=== PATIENT | male | born 1940 | race Two or more races ===

== ENCOUNTER 2023-07-07 02:01 | Inpatient (IN) | payer MEDICARE, OTHER ==
[~2023-07-07] VITALS: Ht 182.9 cm; Wt 89.8 kg
[2023-07-07 03:29] LABS: BASOPHILS % (AUTO) 0.6 % (0.0-2.0); EOSINOPHILS # (AUTO) 0.1 K/uL (0.0-0.7); EOSINOPHILS % (AUTO) 1.5 % (0.0-6.0); HEMATOCRIT 42 % (39-51); LYMPHOCYTES # (AUTO) 0.3 K/uL (0.8-4.8); LYMPHOCYTES % (AUTO) 8.3 % (20.0-44.0); MEAN CORPUSCULAR HEMOGLOBIN 34 PG (26.0-33.0); MEAN CORPUSCULAR HGB CONC 34 g/dl (31.0-36.0); MEAN CORPUSCULAR VOLUME 102 fL (80-96); MONOCYTES # (AUTO) 0.5 K/uL (0.1-1.30); MONOCYTES % (AUTO) 13.4 % (2.0-12.0); NEUTROPHILS # (AUTO) 2.9 K/uL (1.8-8.9); NEUTROPHILS % (AUTO) 76.2 % (43.0-81.0); PLATELET COUNT (AUTO) 82 K/uL (150-450); RED BLOOD CELL COUNT(AUTO) 4.09 MIL/uL (4.5-6.0); RED CELL DISTRIBUTION WIDTH 13.7 % (11.5-15.0); WHITE BLOOD COUNT (AUTO) 3.8 K/uL (4.3-11.0)
[2023-07-07 04:06] LABS: CALCIUM, SERUM 8.9 mg/dL (8.5-10.1); CARBON DIOXIDE 24 mmol/L (21-32); CHLORIDE 103 mmol/L (98-107); CREATININE 1.1 mg/dL (0.6-1.3); GLUCOSE 180 mg/dL (74-106); POTASSIUM 4.2 mmol/L (3.5-5.1); SODIUM SERUM 136 mmol/L (136-145); UREA NITROGEN, BLOOD 6 mg/dL (7-18)
[2023-07-07 04:18] LABS: ALANINE AMINOTRANSFERASE 14 U/L (12-78); ALBUMIN 3.4 g/dL (3.4-5.0); ALKALINE PHOSPHATASE 96 U/L (46-116); ASPARTATE AMINOTRANSFERASE 19 U/L (15-37); BILIRUBIN,DIRECT 0.3 mg/dL (0.0-0.2); BILIRUBIN,TOTAL 0.8 mg/dL (0.2-1.0); NT-PRO BNP 414 pg/mL (0-125); TOTAL PROTEIN, SERUM 6.4 g/dL (6.4-8.2)
[2023-07-07 04:36] LABS: BASOPHILS % (MANUAL) 0 % (0.0-2.0); EOSINOPHILS % (MANUAL) 2 % (0-4); LYMPHOCYTES % (MANUAL) 5 % (16-48); MONOCYTES % (MANUAL) 9 % (0-11.0); NEUTROPHILS % (MANUAL) 84 (42-76); PLATELET ESTIMATE DECREASED
[2023-07-07] MEDS ORDERED: oxyCODONE/APAP (5/325 MG) 1 UDTAB TABLET ONE (04:52)
[2023-07-07] MEDS ORDERED: oxyCODONE/APAP (5/325 MG) 1 UDTAB TABLET PO ONE (05:00)
[2023-07-07] MEDS ORDERED: MAG HYDROX/AL HYDROX/SIMETH 30 ML UDC PO PRN (05:30)
[2023-07-07] MEDS ORDERED: MORPHINE SULFATE INJ 2 MG/ML DISP.SYRIN IV PRN (05:30)
[2023-07-07] MEDS ORDERED: MAGNESIUM HYDROXIDE 30 ML UDC PO PRN (05:30)
[2023-07-07] MEDS ORDERED: ONDANSETRON HCL/PF 4 MG/2 ML VIAL IVP PRN (05:30)
[2023-07-07] MEDS ORDERED: ACETAMINOPHEN 325 MG TABLET PO PRN (05:30)
[2023-07-07] MEDS ORDERED: Z GUARD REMEDY 4 OZ OINT TP PRN (05:30)
[2023-07-07] MEDS ORDERED: CEFTRIAXONE 1GM BAG (ER ONLY) 1 GM/50 ML PIGGYBACK IV ONE (06:00)
[2023-07-07] MEDS ORDERED: CEFTRIAXONE 1GM BAG (ER ONLY) 50 ML IV ONE (06:07)
[2023-07-07] MEDS: PANTOPRAZOLE 40 MG TABLET.DR PO SCH (07:30)
[2023-07-07] MEDS ORDERED: ATOR10TA PO (10:35)
[2023-07-07] MEDS ORDERED: METF-440 PO (10:35)
[2023-07-07] MEDS: HYDROCODONE/APAP 5/325MG TABLET PO PRN ×3 (10:39→18:51)
[2023-07-07] MEDS ORDERED: OMEP20CA15 PO (12:21)
[2023-07-07] MEDS ORDERED: DAPA10TA PO (12:21)
[2023-07-07 13:27] LABS: THYROID STIMULATING HORMONE 2.201 uIU/mL (0.358-3.74)
[2023-07-07] MEDS ORDERED: DEXTROSE 50%-WATER 50 ML DISP.SYRIN IV PRN (14:30)
[2023-07-07 17:15] LABS: FREE PSA 1.21 ng/mL (0.00-45); PROSTATE SPECIFIC ANTIGEN SCR 5.68 ng/mL (0.00-4.00)
[2023-07-07] MEDS: METFORMIN 500 MG TABLET PO SCH (18:03)
[2023-07-07] MEDS: BLOOD SUGAR DIAGNOSTIC 1 EACH STRIP IN SCH ×2 (18:03→23:02)
[2023-07-07 19:12] LABS: RHEUMATOID FACTOR SCREEN NEGATIVE (NEGATIVE)
[2023-07-07 20:00] VITALS: BP 154/74; TEMP 98.2; O2SAT 98
[2023-07-07] MEDS: TEMAZEPAM 15 MG CAPSULE PO PRN (22:36)
[2023-07-07] MEDS: INSULIN REGULAR, HUMAN 100 UNIT/ML 3 ML VIAL SQ PRN (23:01)
[2023-07-08 04:00] VITALS: BP 127/62; TEMP 97.6; O2SAT 98
[2023-07-08] MEDS: CEFTRIAXONE 1 G in IV D5W 50 ML IV SCH ×2 (06:37→06:42)
[2023-07-08 07:07] LABS: FOLIC ACID 15.5 ng/mL (>3.0)
[2023-07-08] MEDS ORDERED: OMEPRAZOLE 20 MG CAPSULE.DR PO SCH (07:30)
[2023-07-08] MEDS: PANTOPRAZOLE 40 MG TABLET.DR PO SCH (07:30)
[2023-07-08] MEDS: BLOOD SUGAR DIAGNOSTIC 1 EACH STRIP IN SCH ×4 (08:00→21:13)
[2023-07-08 08:07] LABS: IMMUNOGLOBULIN A, SERUM 91 mg/dL (61-437); IMMUNOGLOBULIN G, SERUM 785 mg/dL (603-1613)
[2023-07-08] MEDS: METFORMIN 500 MG TABLET PO SCH ×2 (08:11→17:24)
[2023-07-08] MEDS: ATORVASTATIN 10 MG TABLET PO SCH (08:11)
[2023-07-08 08:20] LABS: BASOPHILS % (AUTO) 0.7 % (0.0-2.0); EOSINOPHILS % (AUTO) 0.4 % (0.0-6.0); HEMATOCRIT 41 % (39-51); HEMOGLOBIN 13.6 g/dL (13.5-17.5); LYMPHOCYTES # (AUTO) 0.4 K/uL (0.8-4.8); LYMPHOCYTES % (AUTO) 19.3 % (20.0-44.0); MEAN CORPUSCULAR HEMOGLOBIN 34 PG (26.0-33.0); MEAN CORPUSCULAR HGB CONC 33 g/dl (31.0-36.0); MEAN CORPUSCULAR VOLUME 101 fL (80-96); MONOCYTES # (AUTO) 0.3 K/uL (0.1-1.30); NEUTROPHILS # (AUTO) 1.5 K/uL (1.8-8.9); NEUTROPHILS % (AUTO) 66.6 % (43.0-81.0); PLATELET COUNT (AUTO) 70 K/uL (150-450); RED BLOOD CELL COUNT(AUTO) 4.01 MIL/uL (4.5-6.0); RED CELL DISTRIBUTION WIDTH 13.6 % (11.5-15.0); WHITE BLOOD COUNT (AUTO) 2.2 K/uL (4.3-11.0)
[2023-07-08 08:32] LABS: CALCIUM, SERUM 8.5 mg/dL (8.5-10.1); CREATININE 0.8 mg/dL (0.6-1.3); MAGNESIUM 2.2 mg/dL (1.8-2.4); PHOSPHORUS 3.6 mg/dL (2.5-4.9); POTASSIUM 4.1 mmol/L (3.5-5.1)
[2023-07-08 09:07] LABS: *ANA ANTI-CENTROMERE B AB <0.2 AI (0.0-0.9); *ANA ANTI-DNA(DS) AB, QN <1 IU/mL (0-9); *ANA ANTI-JO-1 <0.2 AI (0.0-0.9); *ANA ANTICHROMATIN ANTIBODY <0.2 AI (0.0-0.9); *ANA RNP ANTIBODIES <0.2 AI (0.0-0.9); *ANA SJOGREN'S ANTI-SS-A 0.2 AI (0.0-0.9); *ANA SJOGREN'S ANTI-SS-B <0.2 AI (0.0-0.9); *ANAANTI-SCLERODERMA-70 AB 1.8 AI (0.0-0.9); *ANASMITH AB <0.2 AI (0.0-0.9)
[2023-07-08 10:07] LABS: *SPE A/G RATIO 1.2 (0.7-1.7); *SPE ALBUMIN 2.9 g/dL (2.9-4.4); *SPE ALPHA-1-GLOBULIN 0.3 g/dL (0.0-0.4); *SPE ALPHA-2-GLOBULIN 0.7 g/dL (0.4-1.0); *SPE BETA GLOBULIN 0.8 g/dL (0.7-1.3); *SPE GLOBULIN, TOTAL 2.5 g/dL (2.2-3.9); *SPE M-SPIKE Not Observed g/dL (Not Observed); *SPE PROTEIN TOTAL 5.4 g/dL (6.0-8.5); *SPEGAMMA GLOBULIN 0.8 g/dL (0.4-1.8)
[2023-07-08 10:19] LABS: ANISOCYTOSIS 1+; BASOPHILS % (MANUAL) 0 % (0.0-2.0); EOSINOPHILS % (MANUAL) 0 % (0-4); LYMPHOCYTES % (MANUAL) 15 % (16-48); MONOCYTES % (MANUAL) 14 % (0-11.0); NEUTROPHILS % (MANUAL) 71 (42-76); PLATELET ESTIMATE DECREASED
[2023-07-08] MEDS: HYDROCODONE/APAP 5/325MG TABLET PO PRN (10:58)
[2023-07-08 12:00] VITALS: BP 111/61; TEMP 97.8; O2SAT 95
[2023-07-08 12:07] LABS: HEPATITIS B SURFACE AB Non Reactive (.)
[2023-07-08] MEDS: FERROUS SULFATE (325 MG) 325 MG/TAB TABLET PO SCH (15:18)
[2023-07-08 16:57] LABS: APPEARANCE,URINE CLEAR (CLEAR); BILIRUBIN,URINE NEGATIVE (NEGATIVE); BLOOD, URINE NEGATIVE Ery/uL (NEGATIVE); COLOR,URINE YELLOW (YELLOW); KETONES,URINE 2+ mg/dL (NEGATIVE); LEUKOCYTE ESTERASE ,URINE NEGATIVE (NEGATIVE); NITRITE, URINE NEGATIVE (NEGATIVE); PROTEIN,URINE NEGATIVE (NEGATIVE); UGLUCOSE 3+ mg/dL (NEGATIVE); UROBILINOGEN,URINE 0.2 EU/dL (0.2)
[2023-07-08 17:26] LABS: ADD URINE CULTURE YES; BACTERIA,URINE 2+ /HPF (None Seen); RBC,URINE NONE SEEN /HPF (0-2); SQUAMOUS EPITHELIAL CELL,UR 0-2 /HPF (None Seen); WBC,URINE NONE SEEN /HPF (0-3)
[2023-07-08] MEDS: INSULIN REGULAR, HUMAN 100 UNIT/ML 3 ML VIAL SQ PRN ×2 (17:31→21:14)
[2023-07-08 20:00] VITALS: BP 123/64; TEMP 98.8; O2SAT 99
[2023-07-09 04:00] VITALS: BP 123/64; TEMP 98.8; O2SAT 99
[2023-07-09] MEDS: CEFTRIAXONE 1 G in IV D5W 50 ML IV SCH (06:25)
[2023-07-09 07:02] LABS: BASOPHILS % (AUTO) 0.6 % (0.0-2.0); EOSINOPHILS % (AUTO) 0.7 % (0.0-6.0); HEMATOCRIT 41 % (39-51); HEMOGLOBIN 14.1 g/dL (13.5-17.5); LYMPHOCYTES # (AUTO) 0.8 K/uL (0.8-4.8); LYMPHOCYTES % (AUTO) 35.5 % (20.0-44.0); MEAN CORPUSCULAR HEMOGLOBIN 35 PG (26.0-33.0); MEAN CORPUSCULAR HGB CONC 35 g/dl (31.0-36.0); MEAN CORPUSCULAR VOLUME 100 fL (80-96); MONOCYTES # (AUTO) 0.3 K/uL (0.1-1.30); MONOCYTES % (AUTO) 13.8 % (2.0-12.0); NEUTROPHILS # (AUTO) 1.2 K/uL (1.8-8.9); NEUTROPHILS % (AUTO) 49.4 % (43.0-81.0); PLATELET COUNT (AUTO) 66 K/uL (150-450); RED BLOOD CELL COUNT(AUTO) 4.09 MIL/uL (4.5-6.0); RED CELL DISTRIBUTION WIDTH 13.5 % (11.5-15.0); WHITE BLOOD COUNT (AUTO) 2.3 K/uL (4.3-11.0)
[2023-07-09 07:19] LABS: CALCIUM, SERUM 8.4 mg/dL (8.5-10.1); CREATININE 0.7 mg/dL (0.6-1.3); POTASSIUM 4.1 mmol/L (3.5-5.1)
[2023-07-09] MEDS: PANTOPRAZOLE 40 MG TABLET.DR PO SCH ×2 (07:30→12:43)
[2023-07-09 08:23] LABS: BAND % (MANUAL) 1 % (0.0-5.0); EOSINOPHILS % (MANUAL) 1 % (0-4); LYMPHOCYTES % (MANUAL) 34 % (16-48); MONOCYTES % (MANUAL) 10 % (0-11.0); NEUTROPHILS % (MANUAL) 54 (42-76)
[2023-07-09 08:24] LABS: ANISOCYTOSIS 1+; PLATELET ESTIMATE DECREASED
[2023-07-09] MEDS: LIDOCAINE 5% (PATCH) 1 EA PATCH TP SCH ×2 (08:30→12:44)
[2023-07-09] MEDS: ATORVASTATIN 10 MG TABLET PO SCH ×2 (09:00→12:46)
[2023-07-09] MEDS: METFORMIN 500 MG TABLET PO SCH ×3 (09:00→18:01)
[2023-07-09] MEDS: FERROUS SULFATE (325 MG) 325 MG/TAB TABLET PO SCH ×2 (09:00→12:45)
[2023-07-09] MEDS ORDERED: IV NS 0.9% 250 ML IV ONE (09:23)
[2023-07-09] MEDS ORDERED: IOHEXOL-300 100 ML VIAL IV ONE (09:23)
[2023-07-09] MEDS: BLOOD SUGAR DIAGNOSTIC 1 EACH STRIP IN SCH ×4 (10:32→22:00)
[2023-07-09 12:00] VITALS: BP 130/66; TEMP 98.7; O2SAT 96
[2023-07-09] MEDS: HYDROCODONE/APAP 5/325MG TABLET PO PRN ×2 (12:38→18:14)
[2023-07-09] MEDS ORDERED: GADOTERATE MEGLUMINE 10 MMOL/20 ML VIAL IV ONE (13:16)
[2023-07-09] MEDS ORDERED: TRAMADOL HCL 50 MG TABLET PO PRN (16:00)
[2023-07-09] MEDS: POLYETHYLENE GLYCOL 3350 17 GM POWD.PACK PO SCH (16:16)
[2023-07-09 20:00] VITALS: BP 114/61; TEMP 98.6; O2SAT 95
[2023-07-09 20:43] LABS: FREE PSA 0.59 ng/mL (0.00-45); PROSTATE SPECIFIC ANTIGEN SCR 3.45 ng/mL (0.00-4.00)
[2023-07-09] MEDS: TEMAZEPAM 15 MG CAPSULE PO PRN (21:06)
[2023-07-09] MEDS: ASPIRIN 81 MG TAB.CHEW PO SCH (21:06)
[2023-07-09] MEDS: INSULIN REGULAR, HUMAN 100 UNIT/ML 3 ML VIAL SQ PRN (22:01)
[2023-07-10 04:00] VITALS: BP 118/60; TEMP 98.7; O2SAT 96
[2023-07-10] MEDS: CEFTRIAXONE 1 G in IV D5W 50 ML IV SCH (05:36)
[2023-07-10] MEDS: BLOOD SUGAR DIAGNOSTIC 1 EACH STRIP IN SCH ×2 (07:30→12:13)
[2023-07-10] MEDS: PANTOPRAZOLE 40 MG TABLET.DR PO SCH (07:59)
[2023-07-10] MEDS: ASPIRIN 81 MG TAB.CHEW PO SCH (08:19)
[2023-07-10] MEDS: FERROUS SULFATE (325 MG) 325 MG/TAB TABLET PO SCH (08:19)
[2023-07-10] MEDS: METFORMIN 500 MG TABLET PO SCH (08:19)
[2023-07-10] MEDS: LIDOCAINE 5% (PATCH) 1 EA PATCH TP SCH (08:19)
[2023-07-10] MEDS: POLYETHYLENE GLYCOL 3350 17 GM POWD.PACK PO SCH (08:19)
[2023-07-10] MEDS: ATORVASTATIN 10 MG TABLET PO SCH (08:19)
[2023-07-10] MEDS: HYDROCODONE/APAP 5/325MG TABLET PO PRN (08:20)
[2023-07-10 09:07] LABS: IMMUNOGLOBULIN M, SERUM 66 mg/dL (15-143)
[2023-07-10] MEDS ORDERED: AZIT250T13 PO (10:30)
[2023-07-10] MEDS ORDERED: AMOX-430 PO (10:30)
[2023-07-10] MEDS ORDERED: LIDO30AD10 TP (10:30)
[2023-07-10] MEDS ORDERED: ASPI-1169 PO (10:30)
[2023-07-10 11:21] LABS: BASOPHILS % (AUTO) 0.7 % (0.0-2.0); EOSINOPHILS % (AUTO) 1.7 % (0.0-6.0); HEMATOCRIT 41 % (39-51); HEMOGLOBIN 14.1 g/dL (13.5-17.5); LYMPHOCYTES # (AUTO) 0.6 K/uL (0.8-4.8); LYMPHOCYTES % (AUTO) 27.6 % (20.0-44.0); MEAN CORPUSCULAR HEMOGLOBIN 35 PG (26.0-33.0); MEAN CORPUSCULAR HGB CONC 34 g/dl (31.0-36.0); MEAN CORPUSCULAR VOLUME 101 fL (80-96); MONOCYTES # (AUTO) 0.2 K/uL (0.1-1.30); MONOCYTES % (AUTO) 10.3 % (2.0-12.0); NEUTROPHILS # (AUTO) 1.3 K/uL (1.8-8.9); NEUTROPHILS % (AUTO) 59.7 % (43.0-81.0); PLATELET COUNT (AUTO) 71 K/uL (150-450); RED BLOOD CELL COUNT(AUTO) 4.06 MIL/uL (4.5-6.0); RED CELL DISTRIBUTION WIDTH 13.7 % (11.5-15.0); WHITE BLOOD COUNT (AUTO) 2.2 K/uL (4.3-11.0)
[2023-07-10 12:00] VITALS: BP 126/67; TEMP 98; O2SAT 95
[2023-07-10 20:40] LABS: ANISOCYTOSIS 1+; BAND % (MANUAL) 6 % (0.0-5.0); EOSINOPHILS % (MANUAL) 4 % (0-4); LYMPHOCYTES % (MANUAL) 22 % (16-48); MONOCYTES % (MANUAL) 8 % (0-11.0); NEUTROPHILS % (MANUAL) 60 (42-76); PLATELET ESTIMATE DECREASED; ROULEAUX 1+
== END 2023-07-10 13:59 | disposition home or self-care (01) | DRG 64 ==
LOC: ER 02:03 → MEDSG1 08:58
PROVIDERS: ATTEND Internal Medicine
DX: I63.9 Cerebral infarction, unspecified (principal); G93.41 Metabolic encephalopathy; J15.9 Unspecified bacterial pneumonia; N39.0 Urinary tract infection, site not specified; S22.31XA Fracture of one rib, right side, initial encounter for closed fracture; D61.818 Other pancytopenia; E87.1 Hypo-osmolality and hyponatremia; J98.11 Atelectasis; W19.XXXA Unspecified fall, initial encounter; Y92.9 Unspecified place or not applicable; I69.398 Other sequelae of cerebral infarction; D69.6 Thrombocytopenia, unspecified; G93.89 Other specified disorders of brain; Z20.822 Contact with and (suspected) exposure to COVID-19; Z79.84 Long term (current) use of oral hypoglycemic drugs; Z79.899 Other long term (current) drug therapy; I25.10 Atherosclerotic heart disease of native coronary artery without angina pectoris; D72.819 Decreased white blood cell count, unspecified; D72.821 Monocytosis (symptomatic); E11.40 Type 2 diabetes mellitus with diabetic neuropathy, unspecified; N40.0 Benign prostatic hyperplasia without lower urinary tract symptoms; S30.1XXA Contusion of abdominal wall, initial encounter; E61.1 Iron deficiency; R29.700 NIHSS score 0
CPT/HCPCS: 36415; 70450-TC; 70553-TC; 71045-TC; 71100-TC; 71260-TC; 72192-TC; 76700-TC; 78306-TC; 80048-TC; 80061-TC; 80076-TC; 81001; 82378; 82550-TC; 82607-TC; 82728-TC; 82784; 82962-TC; 83540-TC; 83615-TC; 83735-TC; 83880; 83921; 84100-TC; 84153-TC; 84154-TC; 84155; 84165; 84439-TC; 84443-TC; 84484-TC; 85025-TC; 85652-TC; 86140-TC; 86225; 86235; 86334; 86431-TC; 86706; 86803; 87081-TC; 87086-TC; 87340; 97110-TC; 97112-TC; 97116-TC; 97530-TC; 97535-TC; A4223; A9503; A9575; C9803; G0378; J0696; J1815; J2270; J7050; J7060; Q9967